=== PATIENT | female | born 1960 | race Caucasian/White ===

== ENCOUNTER 2017-10-23 19:04 | Emergency (ER) | payer OTHER ==
[2017-10-23 19:24] VITALS: BP 113/76
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
== END 2017-10-23 21:15 | disposition home or self-care (01) ==
DX: S63.501A Unspecified sprain of right wrist, initial encounter (principal); V49.50XA Passenger injured in collision with unspecified motor vehicles in traffic accident, initial encounter; Y92.410 Unspecified street and highway as the place of occurrence of the external cause; Y99.8 Other external cause status; Y93.89 Activity, other specified
CPT/HCPCS: L3807